=== PATIENT | female | born 1960 | race Caucasian/White ===

== ENCOUNTER 2019-11-30 12:04 | Emergency (ER) | payer OTHER, SELFPAY ==
[2019-11-30 12:18] VITALS: BP 142/86; PULSE 88; RESP 20; TEMP 36.4; O2SAT 97
--- NOTE | 2019-11-30 12:31 | ED.SKABFB ---
HPI - Skin/Abscess/Foreign Bdy General Chief complaint: Skin/Abscess/Foreign Body Stated complaint: rash upper body Time Seen by Provider: 11/30/19 12:31 Source: patient Mode of arrival: ambulatory Limitations: no limitations History of Present Illness HPI narrative: Kathryn Mancia is a 58 yo female with a PMH of hypertension, high cholesterol, spinal stenosis, who comes to express care with a rash that occurs yearly, when winter gets cold. She has seen her wrapper off who is giving her triamcinolone cream; rash is only on her upper torso but the cream is not making it clear. Her PCP has tried her on other topical steroids without success Related Data Home Medications Medication Instructions Recorded Confirmed citalopram 40 mg PO DAILY 11/30/19 11/30/19 clonazepam 1 mg PO DAILY 11/30/19 11/30/19 lisinopril-hydrochlorothiazide 1 tablet PO DAILY 11/30/19 11/30/19 pantoprazole 40 mg PO QAM 11/30/19 11/30/19 rosuvastatin 20 mg PO DAILY 11/30/19 11/30/19 trazodone 150 mg PO HS 11/30/19 11/30/19 Allergies Allergy/AdvReac Type Severity Reaction Status Date / Time No Known Allergies Allergy Verified 11/30/19 12:23 Review of Systems Review of Systems: Narrative: CONSTITUTIONAL: Denies fever, chills, sweats. EYES: Denies visual changes, redness, discharge. ENT: Denies rhinorrhea, congestion, sore throat, otalgia. CARDIOVASCULAR: Denies chest pain, palpitations, edema. RESPIRATORY: Denies dyspnea, wheezing, cough GASTROINTESTINAL: Denies abdominal pain, nausea, vomiting, diarrhea. GENITOURINARY: Denies dysuria, hematuria, abnormal discharge SKIN: Red rash on arms neck scalp, and chin MUSCULOSKELETAL: Denies acute back pain, joint pain, or myalgia. NEUROLOGIC: Denies numbness, or focal weakness. PSYCHIATRIC: Denies anxiety or depression. PMFSH Family History Family History Other Heart disease Hypertension Social History Social History (Updated 11/30/19 @ 12:54 by Carolina Lees CNP) Smoking status: Former smoker Alcohol intake: current Exam Narrative: Exam Narrative: GENERAL: This is a well-nourished, well-developed patient, in no apparent distress. HEAD: normocephalic, atraumatic. EYES: Sclera clear/white. Vision is grossly intact. EARS: External ears normal, . Hearing grossly intact. NOSE: External nose normal with no obvious nasal discharge, nares without redness, no rhinorrhea. THROAT: Mucous membranes moist, NECK: Neck supple, non-tender CARDIOVASCULAR: Regular rate and rhythm without murmurs, gallops, or rubs. RESPIRATORY: Clear to auscultation. Breath sounds equal bilaterally. No wheezes, rales, or rhonchi. GASTROINTESTINAL: Abdomen soft, non-tender, nondistended. Bowel sounds are active. No hepato-splenomegaly, or palpable masses. No guarding. SKIN: warm, intact with no suspicious lesions o- rash is papular rash,wosh on arms, no rash on hands or fingersm, rash on neck, scalp, chin, not below beltline NEURO: awake, alert, and oriented to person, place and time. There were no obvious focal neurologic abnormalities. Steady gait EXTREMITIES: Normal range of motion. No edema. BACK: Nontender without deformity or crepitance. Course Course Emergency Course: eczemic rash- started on prednisone, atarax, triamcionolone ointment. slkin care instructions given Vital Signs Vital signs: Vital Signs Temperature 97.5 F L 11/30/19 12:18 Pulse Rate 88 11/30/19 12:18 Respiratory Rate 11/30/19 12:18 Blood Pressure 142/86 H 11/30/19 12:18 Pulse Oximetry 97 11/30/19 12:18 Temperature 97.5 F L 11/30/19 12:18 Pulse Rate 88 11/30/19 12:18 Respiratory Rate 11/30/19 12:18 Blood Pressure 142/86 H 11/30/19 12:18 Pulse Oximetry 97 11/30/19 12:18 MDM - Skin/Abscess/Foreign Bdy Differential Diagnosis Differential diagnosis: Likely urticaria, impetigo and contact dermatitis Discharge Plan Discharge Clinical Impression: Ec
== END 2019-11-30 13:06 | disposition home or self-care (01) ==
PROVIDERS: Emergency Provider Nurse Practitioner
DX: L20.84 Intrinsic (allergic) eczema (principal); Z87.891 Personal history of nicotine dependence; I10 Essential (primary) hypertension; E78.00 Pure hypercholesterolemia, unspecified; M48.00 Spinal stenosis, site unspecified
CPT/HCPCS: 99213; G0463

== ENCOUNTER 2022-12-25 15:53 | Emergency (ER) | payer OTHER, SELFPAY ==
[2022-12-25 16:04] VITALS: BP 147/81; PULSE 71; RESP 20; TEMP 36.7; O2SAT 98
--- NOTE | 2022-12-25 16:41 | ED.SKABFB ---
HPI - Skin/Abscess/Foreign Bdy General Chief complaint: Skin/Abscess/Foreign Body Stated complaint: Itching/Rash Time Seen by Provider: 12/25/22 16:21 Source: patient Mode of arrival: ambulatory Limitations: no limitations History of Present Illness HPI narrative: Patient presents today complaining of a severely pruritic rash over her face, neck, bilateral arms and legs. This rash has been present for over 3 years, but worse over the past 2 weeks. 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 She has been on 0.1% triamcinolone ointment without relief of symptoms. She has also been taking Benadryl without relief. She does not have another dermatology appointment until January 25 and is scratching intensely. Related Data Home Medications Medication Instructions Recorded Confirmed citalopram 40 mg tablet 40 mg PO DAILY 11/30/19 12/25/22 clonazepam 1 mg tablet 1 mg PO DAILY 11/30/19 12/25/22 lisinopril 20 1 tablet PO DAILY 11/30/19 12/25/22 mg-hydrochlorothiazide 12.5 mg tablet pantoprazole 40 mg tablet,delayed 40 mg PO QAM 11/30/19 12/25/22 release rosuvastatin 20 mg tablet 20 mg PO DAILY 11/30/19 12/25/22 trazodone 150 mg tablet 150 mg PO HS 11/30/19 12/25/22 Allergies Allergy/AdvReac Type Severity Reaction Status Date / Time No Known Allergies Allergy Verified 12/25/22 16:06 Review of Systems Review of Systems: CONSTITUTIONAL: Denies body aches, fever, chills, or sweats. EYES: Denies visual changes, redness, or discharge. ENT: Denies rhinorrhea, congestion, sore throat, or otalgia. CARDIOVASCULAR: Denies chest pain, palpitations, or edema. RESPIRATORY: Denies cough or dyspnea. GASTROINTESTINAL: Denies abdominal pain, nausea, vomiting, or diarrhea. GENITOURINARY: Denies dysuria or hematuria. SKIN: + severely pruritic rash MUSCULOSKELETAL: Denies back pain, joint pain, or myalgia. NEUROLOGIC: Denies headache, numbness, tingling, or weakness. PSYCH: Denies depression or anxiety. [facility] Past Medical History Medical History (Updated 12/25/22 @ 16:45 by Sharee Mejia, [facility], ) Eczema Family History Family History Other Heart disease Hypertension Social History Social History Smoking status: Former smoker Alcohol intake: current Comments At time of signature, I have reviewed and agree with nursing past medical, surgical, social and family history unless otherwise noted. Please see nursing chart for further information. There is no relevant family history pertinent to the presenting complaint Exam Narrative: GENERAL: Well-appearing, well-nourished, and in no acute distress. HEAD: Normocephalic, atraumatic. EYES: EOMI. No redness or drainage. Conjunctivae normal. ENT: Mucous membranes pink and moist. NECK: Normal AROM. CHEST: No respiratory distress. EXTREMITIES: Normal range of motion. No edema. SKIN: Warm. Capillary refill normal. Normal skin turgor. Dozens of scattered tiny scabs over all 4 extremities, neck, ears, and forehead. Skin is very dry. No erythema. Few of the scabs have been scratched off recently. No surrounding induration or signs of bacterial infection noted. NEURO: No focal deficits. Alert and oriented x3. Gait steady. PSYCH: Normal affect. No signs of depression or anxiety. Course Course Level of Care: Express Care Visit Vital Signs Vital signs: Vital Signs Temperature 98.0 F 12/25/22 16:04 Pulse Rate 71 12/25/22 16:04 Respiratory Rate 20 12/25/22 16:04 Blood Pressure 147/81 H 12/25/22 16:04 Pulse Oximetry 98 12/25/22 16:04 Oxygen Delivery Room Air 12/25/22 16:04 Temperature 98.0 F 12/25/22 16:04 Pulse Rate 71 12/25/22 16:04 Respiratory Rate 20 12/25/22 16:04 Blood Pressure 147/81 H 12/25/22 16:04 Pulse Oximetry 98 12/25/22 16:04 Oxygen Deliv
== END 2022-12-25 16:50 | disposition home or self-care (01) ==
PROVIDERS: Emergency Provider Nurse Practitioner; PCP Nurse Practitioner Family
DX: L30.9 Dermatitis, unspecified (principal); Z87.891 Personal history of nicotine dependence
CPT/HCPCS: 99213; G0463

== ENCOUNTER 2023-03-10 13:36 | Emergency (ER) | payer OTHER, SELFPAY ==
--- NOTE | ~2023-03-10 | XR_ITS ---
XR knee RT min 4V 03/10/2023 14:50 INDICATION: Right knee pain after recent fall PROCEDURE: 4 views right knee COMPARISON: No prior studies for comparison. FINDINGS: Fracture, dislocation or subluxation is not identified. No significant joint effusion. The soft tissues appear within normal limits. No foreign bodies are identified. IMPRESSION: 1: NO ACUTE BONE OR JOINT ABNORMALITY IDENTIFIED. Reviewed, dictated and finalized at location L.
--- NOTE | ~2023-03-10 | XR_ITS ---
XR hip RT min 2V 03/10/2023 14:50 Indication: Personal history of nicotine dependence Procedure: 3 views right hip Comparison: No prior studies for comparison. Findings: There is anatomic alignment. Mild osteoarthritis of the right hip. Normal mineralization. N o acute fracture or traumatic malalignment. Impression: 1: No acute fracture. Reviewed, dictated and finalized at location L. Impression: 1: No acute fracture.
[2023-03-10 13:47] VITALS: BP 127/74; PULSE 65; RESP 16; TEMP 36.3; O2SAT 100
--- NOTE | 2023-03-10 14:45 | ED.LOWEXIN ---
HPI - Extremity Injury (Lower) General Chief Complaint: Extremity Injury, Lower Stated Complaint: Rt Leg and Hip Pain Time Seen by Provider: 03/10/23 14:10 Source: patient, RN notes reviewed and old records reviewed Mode of arrival: ambulatory Limitations: no limitations History of Present Illness HPI Narrative: 62 year old female who presents to [facility] care with complaints of falling 3 weeks ago when she tripped over her dog. Patient reports that she has pain to area behind lower leg into right knee and up to right hip region, states feels like hip popping out. Patient has not applied any ice to her right knee or hip or taken any OTC medications. Patient has no noted bruising, swelling, redness to right lower extremity, patient able to demonstrate full ROM, sensation and circulation is intact. MD complaint: hip injury (right), knee injury (right) and fall Onset (ago): week(s) (3) Type of Injury: other (fall over dog) Place: home Severity scale (1-10): 8 Exacerbating factors: weight bearing and other (standing) Treatments prior to arrival: other (none) Related Data Home Medications Medication Instructions Recorded Confirmed citalopram 40 mg tablet 40 mg PO DAILY 11/30/19 03/10/23 clonazepam 1 mg tablet 1 mg PO DAILY 11/30/19 03/10/23 lisinopril 20 1 tablet PO DAILY 11/30/19 03/10/23 mg-hydrochlorothiazide 12.5 mg tablet pantoprazole 40 mg tablet,delayed 40 mg PO QAM 11/30/19 03/10/23 release rosuvastatin 20 mg tablet 20 mg PO DAILY 11/30/19 03/10/23 trazodone 150 mg tablet 150 mg PO HS 11/30/19 03/10/23 Allergies Allergy/AdvReac Type Severity Reaction Status Date / Time No Known Allergies Allergy Verified 03/10/23 14:10 Review of Systems Review of Systems: CONSTITUTIONAL: Denies fever, chills, or sweats. EYES: Denies visual changes, redness, or discharge. ENT: Denies rhinorrhea, congestion, sore throat, or otalgia. CARDIOVASCULAR: Denies chest pain, palpitations, or edema. RESPIRATORY: Denies cough or dyspnea. GASTROINTESTINAL: Denies abdominal pain, nausea, vomiting, or diarrhea. GENITOURINARY: Denies dysuria or hematuria. SKIN: Denies rash or itching. MUSCULOSKELETAL: Denies any acute back pain reports right hip and right knee pain after experiencing fall 3 weeks ago. NEUROLOGIC: Denies headache, numbness, or weakness. PSYCHIATRIC:Positive for history of anxiety or depression. All systems reviewed & are unremarkable except as noted in HPI and below PMFSH Past Medical History Medical History (Updated 03/12/23 @ 09:45 by Anayeli Wynn NP) Anxiety and depression Dislocation of left elbow Eczema GERD (gastroesophageal reflux disease) High cholesterol HTN (hypertension) Surgical History Surgical History (Updated 03/12/23 @ 09:36 by Anayeli Wynn NP) History of cholecystectomy Hx of appendectomy Family History Family History (Updated 03/12/23 @ 09:37 by Anayeli Wynn NP) Father Bone cancer Other Heart disease Hypertension Social History Social History (Updated 03/12/23 @ 09:38 by Anayeli Wynn NP) Smoking packs per day: 0.5 Smoking cigarettes per day: 10.0 Years smoked: 46 Smoking pack-years: 23.00 Smoking status: Current every day smoker Alcohol intake: current Gender identity (if verbalized by the patient): Female Comments At time of signature, agree with nursing past medical, surgical, social and family history. There is no relevant family history pertinent to the presenting complaint Exam Narrative: GENERAL: Well-appearing, well-nourished, and in no acute distress. HEAD: Normocephalic, atraumatic. EYES: PERRLA and EOMI. ENT: Nares clear, no rhinorrhea or epistaxis. Mucous membranes moist. NECK: Supple.no lymphadenopathy CHEST: Clear to auscultation. No respiratory distress. HEART: Regular rate and rhythm. No murmur heard. Normal peripheral pulses. ABDOMEN: Soft, nontender, nondistended, normal active bowel sounds. EXTREMITIES: Jolanta
== END 2023-03-10 15:10 | disposition home or self-care (01) ==
PROVIDERS: Emergency Provider Registered Nurse; PCP Nurse Practitioner Family
DX: M25.561 Pain in right knee (principal); M25.551 Pain in right hip; K21.9 Gastro-esophageal reflux disease without esophagitis; E78.00 Pure hypercholesterolemia, unspecified; I10 Essential (primary) hypertension; F41.9 Anxiety disorder, unspecified; F32.A Depression, unspecified; F17.210 Nicotine dependence, cigarettes, uncomplicated
CPT/HCPCS: 73502; 73564; 99214; G0463